=== PATIENT | female | born 1980 | race American Indian/Alaskan Native ===

== ENCOUNTER → 2017-07-13 | Outpatient (CLI) | payer MEDICAID | LOC: FIMAGING 07:16 | PROVIDERS: ATTEND Obstetrics & Gynecology | DX: O09.522 Supervision of elderly multigravida, second trimester (principal); O43.92 Unspecified placental disorder, second trimester ==

== ENCOUNTER → 2017-07-28 | Outpatient (CLI) | payer MEDICAID | LOC: FIMAGING 09:29 | PROVIDERS: ATTEND Obstetrics & Gynecology | DX: O09.522 Supervision of elderly multigravida, second trimester (principal); O26.879 Cervical shortening, unspecified trimester; Z87.59 Personal history of other complications of pregnancy, childbirth and the puerperium; Z3A.21 21 weeks gestation of pregnancy ==